=== PATIENT | male | born 1975 | race Asian ===

== ENCOUNTER → 2024-04-19 | Outpatient (CLI) | payer BC ==
[2024-04-19 10:50] LABS: EOSINOPHILS % 1.8 % (0.0-5.0); HEMATOCRIT. 45.3 % (42.0-52.0); HEMOGLOBIN. 15.2 g/dL (14.0-18.0); LYMPHOCYTES % 37.6 % (20.0-50.0); MEAN CORPUSCULAR HEMOGLOBIN 29.9 pg (28.0-32.0); MEAN CORPUSCULAR HGB CONC 33.5 g/dL (31.0-37.0); MEAN CORPUSCULAR VOLUME 89.2 fL (80.0-94.0); MONOCYTES % 8.1 % (2.0-8.0); NEUTROPHILS % 51.5 % (40.0-76.0); PLATELET 322 x1000/uL (130-400); RED BLOOD CELL COUNT 5.08 mill/uL (4.7-6.1); RED CELL DISTRIBUTION WIDTH 13.6 % (11.6-14.6); WHITE BLOOD COUNT 6.2 x1000/uL (4.5-11.0)
[2024-04-19 11:07] LABS: CHLORIDE 103 mEq/L (98-107); POTASSIUM 4.4 mEq/L (3.5-5.1); SODIUM 137 mEq/L (136-145)
[2024-04-19 11:08] LABS: CARBON DIOXIDE 27 mEq/L (21-32)
[2024-04-19 11:09] LABS: CALCIUM 8.9 mg/dL (8.7-10.4)
[2024-04-19 11:13] LABS: CREATININE 0.9 mg/dL (0.6-1.3); GLUCOSE 126 mg/dL (70-105)
[2024-04-19 11:14] LABS: LDL CHOLESTEROL 105 mg/dL (5-100); TRIGLYCERIDE 100 mg/dL (0-150); UREA NITROGEN BLOOD 6 mg/dL (9-23)
[2024-04-19 11:15] LABS: ALANINE AMINOTRANSFERASE 61 IU/L (10-49); ALBUMIN 4.6 g/dL (3.2-4.8); ASPARTATE AMINOTRANSFERASE 39 IU/L (<34); CHOLESTEROL 147 mg/dL (<200); HDL CHOLESTEROL 41 mg/dL (>55)
[2024-04-19 11:16] LABS: BILIRUBIN TOTAL 0.6 mg/dL (0.1-1.0); PROTEIN TOTAL 7.8 g/dL (6.0-8.3)
[2024-04-19 11:19] LABS: T4 FREE 1.12 ng/dL (0.89-1.76); THYROID STIMULATING HORMONE 0.85 uIU/mL (0.55-4.78)
[2024-04-21 04:08] LABS: CHLAMYDIA TRACHOMATIS NAA Negative (Negative); NEISSERIA GONORRHOEAE NAA Negative (Negative)
== END | disposition home or self-care (01) ==
LOC: LAB 10:00
DX: I10 Essential (primary) hypertension (principal); E11.69 Type 2 diabetes mellitus with other specified complication
CPT/HCPCS: 36415; 80053; 80061; 82306; 83036; 84439; 84443; 85025; 86592; 87389; 87491; 87591

== ENCOUNTER 2024-07-20 07:17 | Inpatient (IN) | payer BC ==
[~2024-07-20] VITALS: Ht 170.2 cm; Wt 88.0 kg
[2024-07-20 08:52] LABS: HEMATOCRIT. 50.1 % (42.0-52.0); HEMOGLOBIN. 16.8 g/dL (14.0-18.0); MEAN CORPUSCULAR HEMOGLOBIN 29.7 pg (28.0-32.0); MEAN CORPUSCULAR HGB CONC 33.5 g/dL (31.0-37.0); MEAN CORPUSCULAR VOLUME 88.4 fL (80.0-94.0); MEAN PLATELET VOLUME 7.2 fl (7.4-10.4); PLATELET 323 x1000/uL (130-400); RED BLOOD CELL COUNT 5.66 mill/uL (4.7-6.1); RED CELL DISTRIBUTION WIDTH 13.7 % (11.6-14.6); WHITE BLOOD COUNT 14.1 x1000/uL (4.5-11.0)
[2024-07-20 08:56] LABS: CHLORIDE 101 mEq/L (98-107); POTASSIUM 4.4 mEq/L (3.5-5.1); SODIUM 130 mEq/L (136-145)
[2024-07-20 08:57] LABS: CALCIUM 8.6 mg/dL (8.7-10.4); CARBON DIOXIDE 19 mEq/L (21-32)
[2024-07-20 08:58] LABS: DIFFERENTIAL COMMENT 1
[2024-07-20 09:03] LABS: UREA NITROGEN BLOOD 21 mg/dL (9-23)
[2024-07-20 09:04] LABS: ALANINE AMINOTRANSFERASE 96 IU/L (10-49); ASPARTATE AMINOTRANSFERASE 42 IU/L (<34); BILIRUBIN DIRECT 0.2 mg/dL (<=3.0)
[2024-07-20 09:05] LABS: BILIRUBIN TOTAL 0.4 mg/dL (0.1-1.0); PROTEIN TOTAL 9.1 g/dL (6.0-8.3)
[2024-07-20 09:07] LABS: GLUCOSE 294 mg/dL (70-105)
[2024-07-20 09:08] LABS: CREATININE 1.7 mg/dL (0.6-1.3)
[2024-07-20 09:55] LABS: PROTHROMBIN TIME 11.2 sec (9.6-11.0)
[2024-07-20] MEDS: SODIUM CHLORIDE 0.9% 1000ML BAG (SEPSIS BOLUS) IV ONE (10:01)
[2024-07-20 10:02] LABS: LACTIC ACID 2.1 mmol/L (0.4-2.0)
[2024-07-20] MEDS: PANTOPRAZOLE SODIUM 40 MG/VIAL IV ONE (10:11)
[2024-07-20] MEDS: CEFTRIAXONE 1GM/50ML 50 ML IV ONE (10:58)
[2024-07-20 12:51] LABS: PLATELET ESTIMATE NORMAL
[2024-07-20 14:13] VITALS: BP 123/84; PULSE 100; RESP 18; TEMP 36.78072; O2SAT 100
[2024-07-20 14:14] VITALS: BP 123/84; PULSE 100; RESP 18; TEMP 36.8072
[2024-07-20] MEDS ORDERED: LOSA25TA26 MT (14:25)
[2024-07-20] MEDS ORDERED: METF-873 MT (14:25)
[2024-07-20] MEDS ORDERED: OMEP10CA5 MT (14:25)
[2024-07-20] MEDS ORDERED: ONDANSETRON HCL 4MG/2ML INJ IV PRN (15:45)
[2024-07-20] MEDS ORDERED: DEXTROSE 50% WATER 50ML SYRINGE IV PRN (15:45)
[2024-07-20] MEDS ORDERED: LOSA-413 MT (15:57)
[2024-07-20] MEDS ORDERED: METF-415 MT (15:57)
[2024-07-20 16:00] VITALS: BP 120/75; PULSE 89; RESP 18; TEMP 36.6696; O2SAT 100
[2024-07-20] MEDS ORDERED: HYDROCODONE/ACETAMINOPHEN 5/325MG TABLET PO PRN (16:15)
[2024-07-20] MEDS: BLOOD SUGAR DIAGNOSTIC STRIP TEST SCH (16:21)
[2024-07-20] MEDS: INSULIN LISPRO 100 UNITS/ML SUBCUT SCH (16:44)
[2024-07-20] MEDS: METFORMIN HCL 850MG TABLET PO SCH (18:00)
[2024-07-20 20:00] VITALS: BP 141/61; PULSE 88; RESP 19; TEMP 37.11408; O2SAT 100
[2024-07-20] MEDS: PANTOPRAZOLE SODIUM 40 MG/VIAL IV SCH (21:08)
[2024-07-20] MEDS: AMOXICILLIN 500MG CAPSULE PO SCH (21:09)
[2024-07-20] MEDS: CLARITHROMYCIN 500MG TABLET PO SCH (21:09)
[2024-07-21] VITALS: BP 152/71; PULSE 80; RESP 18; TEMP 36.61404; O2SAT 100
[2024-07-21 04:00] VITALS: BP 166/71; PULSE 80; RESP 19; TEMP 36.6696; O2SAT 100
[2024-07-21 05:31] LABS: BASOPHILS % 0.3 % (0.0-2.0); HEMATOCRIT. 39.1 % (42.0-52.0); HEMOGLOBIN. 13.7 g/dL (14.0-18.0); LYMPHOCYTES % 9.5 % (20.0-50.0); MEAN CORPUSCULAR HEMOGLOBIN 30.5 pg (28.0-32.0); MEAN CORPUSCULAR HGB CONC 35.1 g/dL (31.0-37.0); MEAN CORPUSCULAR VOLUME 86.9 fL (80.0-94.0); MEAN PLATELET VOLUME 7.6 fl (7.4-10.4); MONOCYTES % 9.5 % (2.0-8.0); NEUTROPHILS % 80.7 % (40.0-76.0); PLATELET 243 x1000/uL (130-400); RED CELL DISTRIBUTION WIDTH 13.3 % (11.6-14.6); WHITE BLOOD COUNT 16.1 x1000/uL (4.5-11.0)
[2024-07-21 05:36] LABS: POTASSIUM 3.4 mEq/L (3.5-5.1)
[2024-07-21 05:38] LABS: CALCIUM 7.4 mg/dL (8.7-10.4)
[2024-07-21 05:42] LABS: CREATININE 1.4 mg/dL (0.6-1.3)
[2024-07-21 08:00] VITALS: BP 101/54; PULSE 100; RESP 18; TEMP 36.50292; O2SAT 97
[2024-07-21] MEDS: LOSARTAN 50 MG TABLET PO SCH (08:08)
[2024-07-21] MEDS ORDERED: PANTOPRAZOLE SODIUM 40 MG/VIAL IV SCH (09:00)
[2024-07-21 12:00] VITALS: BP 109/63; PULSE 84; RESP 18; TEMP 36.55848; O2SAT 98
[2024-07-21] MEDS: POTASSIUM CHLORIDE 20MEQ TABLET SR PO NR (14:20)
[2024-07-21 16:00] VITALS: BP 121/73; PULSE 71; RESP 18; TEMP 36.3918; O2SAT 99
[2024-07-22 03:01] VITALS: BP 117/68; PULSE 78; RESP 18; TEMP 36.44736; O2SAT 99
[2024-07-22 06:48] LABS: BASOPHILS % 0.5 % (0.0-2.0); EOSINOPHILS % 1.1 % (0.0-5.0); HEMATOCRIT. 39.2 % (42.0-52.0); HEMOGLOBIN. 13.9 g/dL (14.0-18.0); LYMPHOCYTES % 26.6 % (20.0-50.0); MEAN CORPUSCULAR HEMOGLOBIN 30.7 pg (28.0-32.0); MEAN CORPUSCULAR HGB CONC 35.5 g/dL (31.0-37.0); MEAN CORPUSCULAR VOLUME 86.5 fL (80.0-94.0); MEAN PLATELET VOLUME 7.8 fl (7.4-10.4); MONOCYTES % 13.1 % (2.0-8.0); NEUTROPHILS % 58.7 % (40.0-76.0); PLATELET 224 x1000/uL (130-400); RED BLOOD CELL COUNT 4.53 mill/uL (4.7-6.1); RED CELL DISTRIBUTION WIDTH 13.2 % (11.6-14.6); WHITE BLOOD COUNT 7.5 x1000/uL (4.5-11.0)
[2024-07-22 06:51] LABS: CARBON DIOXIDE 20 mEq/L (21-32); CHLORIDE 111 mEq/L (98-107); POTASSIUM 3.6 mEq/L (3.5-5.1); SODIUM 139 mEq/L (136-145)
[2024-07-22 06:52] LABS: CALCIUM 7.6 mg/dL (8.7-10.4)
[2024-07-22 06:57] LABS: GLUCOSE 130 mg/dL (70-105); UREA NITROGEN BLOOD 11 mg/dL (9-23)
[2024-07-22 08:00] VITALS: BP 113/55; RESP 20; TEMP 36.28068; O2SAT 61
[2024-07-22] MEDS: ACETAMINOPHEN 325MG TABLET PO PRN (11:10)
[2024-07-22 12:00] VITALS: BP 120/68; PULSE 67; RESP 20; TEMP 36.22512; O2SAT 100
[2024-07-22 16:00] VITALS: PULSE 57; RESP 20; TEMP 37.00296; O2SAT 100
[2024-07-22] MEDS: SODIUM CHLORIDE 0.9% 1,000 ML IV SCH (19:08)
[2024-07-22 20:00] VITALS: BP 122/62; PULSE 62; RESP 18; TEMP 36.78072; O2SAT 100
[2024-07-22] MEDS: LEVOFLOXACIN 500MG TABLET PO SCH (21:24)
[2024-07-23] VITALS: BP 126/58; PULSE 68; RESP 18; TEMP 36.6696; O2SAT 98
[2024-07-23 04:00] VITALS: BP 132/62; PULSE 68; RESP 17; TEMP 36.78072; O2SAT 96
[2024-07-23 06:33] LABS: CARBON DIOXIDE 25 mEq/L (21-32); CHLORIDE 108 mEq/L (98-107); POTASSIUM 3.5 mEq/L (3.5-5.1); SODIUM 137 mEq/L (136-145)
[2024-07-23 06:34] LABS: CALCIUM 7.7 mg/dL (8.7-10.4)
[2024-07-23 06:39] LABS: GLUCOSE 158 mg/dL (70-105); UREA NITROGEN BLOOD 9 mg/dL (9-23)
[2024-07-23 06:40] LABS: ALANINE AMINOTRANSFERASE 100 IU/L (10-49); ASPARTATE AMINOTRANSFERASE 67 IU/L (<34)
[2024-07-23 06:41] LABS: ALBUMIN 3.7 g/dL (3.2-4.8); BILIRUBIN DIRECT 0.2 mg/dL (<=3.0); BILIRUBIN TOTAL 0.4 mg/dL (0.1-1.0); PHOSPHORUS 2.8 mg/dL (2.5-4.9); PROTEIN TOTAL 6.6 g/dL (6.0-8.3)
[2024-07-23 06:43] LABS: BASOPHILS % 0.5 % (0.0-2.0); EOSINOPHILS % 1.2 % (0.0-5.0); HEMATOCRIT. 39.6 % (42.0-52.0); HEMOGLOBIN. 13.5 g/dL (14.0-18.0); LYMPHOCYTES % 26.9 % (20.0-50.0); MEAN CORPUSCULAR HEMOGLOBIN 29.4 pg (28.0-32.0); MEAN CORPUSCULAR HGB CONC 34.1 g/dL (31.0-37.0); MEAN CORPUSCULAR VOLUME 86.4 fL (80.0-94.0); MEAN PLATELET VOLUME 7.8 fl (7.4-10.4); MONOCYTES % 12.8 % (2.0-8.0); NEUTROPHILS % 58.6 % (40.0-76.0); PLATELET 253 x1000/uL (130-400); RED BLOOD CELL COUNT 4.59 mill/uL (4.7-6.1); WHITE BLOOD COUNT 7.4 x1000/uL (4.5-11.0)
[2024-07-23 08:00] VITALS: BP 108/72; PULSE 54; RESP 18; TEMP 36.3918; O2SAT 97
[2024-07-23 09:26] LABS: INR 0.9; PROTHROMBIN TIME 10.3 sec (9.6-11.0)
[2024-07-23 12:00] VITALS: BP 104/49; PULSE 66; RESP 18; TEMP 36.78072; O2SAT 96
[2024-07-23 13:19] LABS: BASOPHILS % 0.5 % (0.0-2.0); CARBON DIOXIDE 27 mEq/L (21-32); CHLORIDE 105 mEq/L (98-107); EOSINOPHILS % 1.4 % (0.0-5.0); HEMATOCRIT. 39.4 % (42.0-52.0); HEMOGLOBIN. 13.9 g/dL (14.0-18.0); LYMPHOCYTES % 23.7 % (20.0-50.0); MEAN CORPUSCULAR HEMOGLOBIN 30.2 pg (28.0-32.0); MEAN CORPUSCULAR HGB CONC 35.2 g/dL (31.0-37.0); MEAN CORPUSCULAR VOLUME 85.7 fL (80.0-94.0); MEAN PLATELET VOLUME 7.4 fl (7.4-10.4); MONOCYTES % 12.2 % (2.0-8.0); NEUTROPHILS % 62.2 % (40.0-76.0); PLATELET 272 x1000/uL (130-400); POTASSIUM 3.5 mEq/L (3.5-5.1); RED CELL DISTRIBUTION WIDTH 13.1 % (11.6-14.6); SODIUM 137 mEq/L (136-145); WHITE BLOOD COUNT 6.2 x1000/uL (4.5-11.0)
[2024-07-23 13:20] LABS: CALCIUM 7.7 mg/dL (8.7-10.4)
[2024-07-23 13:24] LABS: GLUCOSE 137 mg/dL (70-105)
[2024-07-23 13:25] LABS: UREA NITROGEN BLOOD 9 mg/dL (9-23)
[2024-07-23 20:00] VITALS: BP 125/68; PULSE 60; RESP 18; TEMP 36.3918; O2SAT 98
[2024-07-24] VITALS: BP 130/83; PULSE 62; RESP 18; TEMP 36.44736; O2SAT 97
[2024-07-24 04:00] VITALS: BP 121/79; PULSE 68; RESP 18; TEMP 36.3918; O2SAT 97
[2024-07-24 06:29] LABS: INR 0.9; PROTHROMBIN TIME 9.8 sec (9.6-11.0)
[2024-07-24 06:32] LABS: CHLORIDE 107 mEq/L (98-107); POTASSIUM 3.3 mEq/L (3.5-5.1); SODIUM 139 mEq/L (136-145)
[2024-07-24 06:33] LABS: CALCIUM 7.9 mg/dL (8.7-10.4); CARBON DIOXIDE 23 mEq/L (21-32)
[2024-07-24 06:38] LABS: GLUCOSE 179 mg/dL (70-105); UREA NITROGEN BLOOD 10 mg/dL (9-23)
[2024-07-24 07:13] LABS: BASOPHILS % 0.5 % (0.0-2.0); EOSINOPHILS % 1.8 % (0.0-5.0); HEMATOCRIT. 37.6 % (42.0-52.0); LYMPHOCYTES % 36.1 % (20.0-50.0); MEAN CORPUSCULAR HEMOGLOBIN 29.5 pg (28.0-32.0); MEAN CORPUSCULAR HGB CONC 34.5 g/dL (31.0-37.0); MEAN CORPUSCULAR VOLUME 85.7 fL (80.0-94.0); MEAN PLATELET VOLUME 7.6 fl (7.4-10.4); MONOCYTES % 14.9 % (2.0-8.0); NEUTROPHILS % 46.7 % (40.0-76.0); PLATELET 267 x1000/uL (130-400); RED BLOOD CELL COUNT 4.39 mill/uL (4.7-6.1); WHITE BLOOD COUNT 7.4 x1000/uL (4.5-11.0)
[2024-07-24] MEDS ORDERED: POTASSIUM CHLORIDE 20 MEQ in DEXT 5% WATER 90 ML IV STA (07:18)
[2024-07-24 08:00] VITALS: BP 112/60; PULSE 66; RESP 20; TEMP 37.00296; O2SAT 96
[2024-07-24] MEDS: KCL 20MEQ/100ML PREMIX 100 ML IV NR (09:22)
[2024-07-24] MEDS ORDERED: HYDROMORPHONE HCL/PF 2MG/ML INJ IV PRN (11:30)
[2024-07-24] MEDS ORDERED: MEPERIDINE HCL/PF 25MG/ML CPJ IV PRN (11:30)
[2024-07-24] MEDS ORDERED: ONDANSETRON HCL 4MG/2ML INJ IV PRN (11:30)
[2024-07-24] MEDS ORDERED: LABETALOL 5MG/ML 4ML INJ IV PRN (11:30)
[2024-07-24 16:00] VITALS: BP 102/48; PULSE 67; RESP 20; TEMP 36.33624; O2SAT 97
[2024-07-24] MEDS ORDERED: PROT40 MT (16:51)
[2024-07-24 18:35] VITALS: BP 123/70; PULSE 69; TEMP 97.6; O2SAT 97
== END 2024-07-24 20:05 | disposition home or self-care (01) | DRG 871 ==
LOC: ER 07:32 → 5WST 10:41 → EDBEDREQ 10:56 → EDBEDREQTM 10:56 → 8WST 14:20
PROVIDERS: ADMIT Internal Medicine; ATTEND Internal Medicine
PROC: 0DB78ZX Excision of Stomach, Pylorus, Via Natural or Artificial Opening Endoscopic, Diagnostic (ICD-10-PCS; principal; 2024-07-24)
DX: A41.9 Sepsis, unspecified organism (principal); N17.0 Acute kidney failure with tubular necrosis; E87.1 Hypo-osmolality and hyponatremia; E87.20 Acidosis, unspecified; K52.9 Noninfective gastroenteritis and colitis, unspecified; E66.9 Obesity, unspecified; I12.9 Hypertensive chronic kidney disease with stage 1 through stage 4 chronic kidney disease, or unspecified chronic kidney disease; K27.9 Peptic ulcer, site unspecified, unspecified as acute or chronic, without hemorrhage or perforation; Z68.30 Body mass index [BMI] 30.0-30.9, adult; E11.22 Type 2 diabetes mellitus with diabetic chronic kidney disease; K76.0 Fatty (change of) liver, not elsewhere classified; D64.9 Anemia, unspecified; K44.9 Diaphragmatic hernia without obstruction or gangrene; E83.51 Hypocalcemia; K29.50 Unspecified chronic gastritis without bleeding; N18.9 Chronic kidney disease, unspecified
CPT/HCPCS: 36415; 71045; 74176; 80048; 80053; 80076; 82962; 83036; 83605; 83735; 84100; 84145; 85025; 86850; 86900; 87015; 87045; 87427; 87449; 87493; 88305; 93005; 99291; J0696; J1815; J2470; J3480; J7030